=== PATIENT | female | born 1980 ===

== ENCOUNTER 2018-09-10 18:04 | Emergency (ER) | payer SELFPAY ==
--- NOTE | 2018-09-10 18:50 | RAD ---
Exam:Right wrist 3 views HISTORY: Pain. Trauma. COMPARISON: None FINDINGS: Intercarpal and radiocarpal joint spaces are preserved. No fracture. No cortical irregulari ty or periosteal IMPRESSION: No fracture. If there is pain or point tenderness, immobilization and follow-up imaging i n 7-10 days.
[2018-09-10] MEDS ORDERED: Ibuprofen 200 MG TAB ONE (19:13)
== END 2018-09-10 19:20 | disposition home or self-care (01) ==
LOC: ERS 18:04
DX: S50.11XA Contusion of right forearm, initial encounter (principal); G43.909 Migraine, unspecified, not intractable, without status migrainosus; Z79.899 Other long term (current) drug therapy; W18.30XA Fall on same level, unspecified, initial encounter